=== PATIENT | female | born 1955 | race Caucasian/White ===

== ENCOUNTER → 2016-10-20 | Outpatient (CLI) | payer BC ==
[~2016-10-20] MED LIST: IOHEXOL 300 MG/ML 100ml INJECTION ONE; NORMAL SALINE 100 ML ONE; SALINE FLUSH 10ml SYRINGE ONE
--- NOTE | 2016-10-20 09:06 | DI ---
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 Coronal and sagittal two-dimensional reformats. Automated Exposure Control and Iterative Reconstruction dose reducing techniques were utilized. Contrast: Omnipaque 300 100 mL Findings: Chest: The lungs are stable in appearance. Several small nodular foci are unchanged dating back to the December 2015 exam. No new or enlarging pulmonary nodule or mass. No consolidative pneumonia, pleural effusion or pneumothorax. The central airways are patent. Thyroid gland is unremarkable. Partially calcified mass in the right axilla is decreased in size, now measuring 4.7 x 3.3 cm in diameter compared to 5 x 3.6 cm on the prior exam. The spiculated right breast mass with internal calcification is also slightly smaller, now measuring 2.8 cm in maximal thickness compared to 3.2 cm previously. There is associated overlying skin thickening. No left axillary adenopathy. Great vessels are unchanged. Heart size is stable. No pericardial effusion. Large calcified right pericardial process is stable. Abdomen: The liver is stable without enhancing mass or bile duct dilatation. The gallbladder, spleen, pancreas and adrenal glands are unchanged. Stable small nodule in the lateral limb of the left adrenal. Kidneys appear normal. No abdominal adenopathy. The visualized loops of small and large bowel are within normal limits. Bone windows are unchanged. Impression: 1. Decreasing size of the right axillary and right breast mass consistent with response to therapy. 2. No new or worsening metastatic disease seen within the chest or abdomen. .
--- NOTE | 2016-10-20 11:47 | DI ---
Indication: ITS.REASON: C50.411; C78.01; C78.02; R22.2; C79.72 left adrenal gland ca PROCEDURE: NM BONE SCAN, WHOLE BODY: Encounter: Subsequent Comparison: Nuclear medicine bone scan dated November 10, [address] chest and abdomen from today Technique: 27.5 mCi of Tc-99m MDP was administered intravenously. Anterior and posterior planar whole-body and spot images were obtained. FINDINGS: The scan demonstrates the expected normal biodistribution for the radiotracer. There is again uptake seen in the right breast probably related to the known breast mass seen on today's CT. Degenerative uptake in the knees and left midfoot. There is no abnormal radiotracer uptake to suggest bony metastasis. IMPRESSION: No evidence of metastatic disease to the skeleton. .
== END ==
LOC: IMA 07:25
PROVIDERS: ATTEND Internal Medicine Medical Oncology
DX: C50.411 Malignant neoplasm of upper-outer quadrant of right female breast (principal); C78.01 Secondary malignant neoplasm of right lung; C78.02 Secondary malignant neoplasm of left lung; C79.72 Secondary malignant neoplasm of left adrenal gland; R22.2 Localized swelling, mass and lump, trunk
CPT/HCPCS: 71260; 74160; 78306; A9503; J7050; Q9967